=== PATIENT | female | born 2005 | race Caucasian/White ===

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

== ENCOUNTER 2024-06-28 08:12 | Observation (INO) | payer OTHER ==
[~2024-06-28] VITALS: Ht 160 cm; Wt 72.5 kg
[~2024-06-28 08:12] MED LIST changes: +ABILIFY10 MG PO; +AMOXICILLIN500 MG PO; +ARIPIPRAZOLE10 MG PO; +CARBAMAZEPINE200 M2 PO; +CARBATROL200 MG PO; +CLONIDINE HCL0.1 MG PO; +DOXYCYCLINE HY100 M3 PO; +ONDANSETRON ODT4 MG PO; +QELBREE200 MG PO; +TRAZODONE HCL100 MG PO
[2024-06-28] MEDS ORDERED: IMIPRAMINE HCL50 MG PO (08:41)
[2024-06-28] MEDS ORDERED: BUSPIRONE HCL10 MG PO (08:41)
[2024-06-28] MEDS ORDERED: CARBAMAZEPINE200 M1 PO (08:41)
[2024-06-28] MEDS ORDERED: LURASIDONE HCL40 MG PO (08:41)
[2024-06-28] MEDS ORDERED: PHENAZOPYRIDINE HCL 95 MG TAB PO ONE (08:45)
[2024-06-28 08:57] LABS: BILIRUBIN, URINE POSITIVE (negative); BLOOD/HGB, URINE LARGE (Negative); KETONE, URINE SMALL (Negative); LEUK ESTERASE, URINE NEGATIVE (negative); NITRITE, URINE NEGATIVE (negative)
[2024-06-28 09:04] LABS: BACTERIA, URINE RARE /hpf (negative); CASTS, URINE NONE SEEN \\lpf; COLLECTION TYPE, URINE CLEAN CATCH; CRYSTALS, URINE NONE SEEN (0-1+); EPITHELIAL CELLS, URINE SQUAMOUS 3+ /lpf (0-1+); RED BLOOD CELLS, URINE >50 /hpf (0-5); REFLEX CULTURE, URINE No (No); WHITE BLOOD CELLS, URINE 0-1 /HPF (0-5)
[2024-06-28] MEDS ORDERED: SODIUM CHLORIDE 0.9% 1,000 ML IV PRN (09:15)
[2024-06-28] MEDS ORDERED: KETOROLAC TROMETHAMINE 30 MG/ML VIAL IV ONE (09:15)
[2024-06-28 09:27] LABS: BASOPHILS 0.4 % (0-2); HEMATOCRIT 44.3 % (35.0-50.0); HEMOGLOBIN 15.3 g/dL (12.0-18.0); LYMPHOCYTES 28.6 % (24-44); MCH 29.7 (27-36); MCHC 34.6 g/dl (30-36); MCV 85.8 fl (81-99); MONOCYTES 6.3 % (0-12); NEUTROPHILS 64.7 % (39-80); PLATELET COUNT 214 K/uL (140-440); RBC 5.16 M/ul (4.3-5.7); RDW 12.2 (10.5-15.0)
[2024-06-28 09:42] LABS: ALBUMIN 4.2 g/dL (3.4-5.0); ALBUMIN/GLOBULIN RATIO 1.27 (1.1-2.4); ANION GAP 15.5 (7-21); BILIRUBIN, TOTAL 0.6 ng/dL (0.2-1.0); BUN/CREATININE RATIO 7.5 (6.0-28.6); CALCIUM 9.3 mg/dL (8.5-10.1); CREATININE, SERUM 0.8 mg/dL (0.55-1.02); POTASSIUM 3.5 mmol/L (3.5-5.1); PROTEIN, TOTAL 7.5 g/dL (6.4-8.2)
[2024-06-28] MEDS ORDERED: ZAFEMY 150-351 EACH TOP (11:30)
[2024-06-28] MEDS ORDERED: LACTATED RINGER'S 1,000 ML IV SCH ×3 (11:45→20:00)
[2024-06-28] MEDS ORDERED: CEFTRIAXONE/SODIUM CHLORIDE 1 GM/100 ML PIGGYBACK IV ONE (11:45)
[2024-06-28] MEDS ORDERED: HYDROmorphone HCL 1 MG/ML SYR IV PRN (15:15)
[2024-06-28] MEDS ORDERED: D5W 1/2 NS + 20 KCL 1,000 ML IV SCH (15:15)
[2024-06-28] MEDS ORDERED: ondansetron HCL 4 MG/2 ML VIAL IV PRN ×2 (15:15→20:00)
[2024-06-28 16:37] VITALS: BP 123/70
--- NOTE | 2024-06-28 17:00 | NUR ---
Patient arrived to the medical floor. Patient is alert and oriented x4, notably anxious. Patient's vitals are stable. IV site patent, fluids infusing per order. Patient reports pain level 5/10, she is declining pain medications at this time. Patient oriented to room and call light.
--- NOTE | 2024-06-28 17:42 | NUR ---
Clarified iv fluid order with Dr. Rae via phone. New order to change fluids to LR @ 85ml/hr continuous. Also to start patient's home dose/schedule for buspirone. Orders placed at this time.
[2024-06-28] MEDS ORDERED: busPIRone HCL 5 MG TAB PO PRN ×2 (17:45→18:30)
[2024-06-28 18:09] VITALS: BP 124/84
--- NOTE | 2024-06-28 18:12 | NUR ---
PT RESTING IN BED. VITALS COMPLETE. VOIDED 200 ML OF ORANGE URINE, APPEARS TO HAVE SOME BLOOD IN IT WELL. DENIES ANY NEEDS, CALL LIGHT IN REACH
--- NOTE | 2024-06-28 18:13 | NUR ---
PT ASKED IF 14 Y.O BROTHER COULD STAY WITH HER. SPOKE W BROADCAST OPERATIONS DIRECTOR RN, HE OK'D IF SOLVENT MIXER OK'D. SOLVENT MIXER OK'D , PT NOTIFED.
--- NOTE | 2024-06-28 19:33 | NUR ---
REPORT RECEIVED FROM DAY SHIFT RN. PT LYING IN BED ALERT AND ORIENTED. SANDWICH BOX PROVIDED PER REQUEST. NO FURTHER NEEDS. WHITE BOARD UPDATED. CALL LIGHT IN REACH.
[2024-06-28] MEDS ORDERED: MORPHINE SULFATE 10 MG/ML VIAL IV PRN (20:00)
[2024-06-28] MEDS ORDERED: KETOROLAC TROMETHAMINE 30 MG/ML VIAL IV PRN (20:00)
--- NOTE | 2024-06-28 20:05 | CONS ---
[facility] [address] [place], [place] [address] Signed DATE OF CONSULTATION: 06/28/2024 REQUESTING PHYSICIAN: Dr. Pérez [facility]. ISSUE: Right flank pain (chronic), hematuria, CT finding with mildly dilated appendix. HISTORY OF PRESENT ILLNESS: This 18-year-old white woman tells me she has had right flank pain and some right subcostal pain for months. Her primary provider, Dr. Fulton has organized her to see a urologist as she has had chronic recurrent urinary tract infections. She has had no change whatsoever in her symptoms even recently though did present to the emergency room today with complaints of the pain. There is nothing new, specifically no nausea or vomiting. No right lower abdominal pain or lower abdominal pain, right or left side particularly. Urinalysis was obtained which was quite markedly abnormal with a large amount of blood, pH of 6.0, red cells greater than 50 and white cells 0 to 1. Her CBC was notable for white count is normal at 6.5 with hematocrit of 44.3, and platelets 214,000. The patient has been documented as having chronic recurrent urinary tract infections and has been treated with antibiotics in the past. A Urology referral has been put in place and she is not to see the urologist until September for which a cystoscopy is planned. The patient has had no nausea or vomiting. She is able to maintain hydration and has no right lower abdominal pain whatsoever. A beta HCG has been obtained which was negative. A Chem profile obtained is normal as well including liver enzymes. Consultation was obtained on the finding of the CT scan, which showed a borderline slightly enlarged appearance of the appendix measuring 9 mm at its base, but a foci of gas within the tip of the appendix. There was no regional lymphadenopathy or inflammatory change. The lungs appeared normal. Liver, gallbladder and biliary tree considered normal as well. A 5 mm calculus is seen in the mid pole of the left kidney. There was no evidence of hydroureter. The distal ureters and bladder appeared normal. There is no pelvic mass. PAST MEDICAL HISTORY: Notable primarily for mental health disease, which includes bipolar disease and several other diagnoses including PTSD, all of which she seems to know well. She is under treatment for these maladies. CURRENT MEDICATIONS: Include 400 mg p.o. daily, buspirone 5-10 mg p.o. t.i.d., imipramine 50 mg Electronically Signed By: BENJI ZUNIGA MD 06/28/242004 PATIENT NAME: DOMI GEE CONSULTATION DATE OF : 04 REPORT #: [id number] PHYSICIAN: BENJI ZUNIGA MD PCP: RAMIN FULTON MD REPORT IS CONFIDENTIAL AND NOT TO BE RELEASED WITHOUT AUTHORIZATION [facility] [address] [place] [id number] Signed p.o. at bedtime, carbamazepine 200 mg p.o. at bedtime, lurasidone 40 mg p.o. at bedtime and a control patch (Zafemy). She has discontinued Abilify, trazodone and continues to take carbamazepine. SOCIAL HISTORY: She lives with her grandmother. She has with her accompanying a well-behaved black Labrador dog. REVIEW OF SYSTEMS: She denies any nausea or vomiting. She has had no dysuria. The pain is primarily in the right posterior flank area and to a lesser extent right subcostal area. She has no pelvic pain. No right lower quadrant pain. PHYSICAL EXAMINATION: GENERAL: This is a very pleasant white woman who is socially engaged generally speaking. She shows no evidence of toxicity and no distress particularly. CHEST: Clear. HEART: Regular without murmur. ABDOMEN: Soft and nondistended. Rovsing sign is negative. She has no tenderness at McBurney's point and at this point, and only mild tenderness in the right upper quadrant without peritonitis. There is no mass. EXTREMITIES: Show no clubbing, cyanosis, or edema. LABORATORY DATA: White count of 6.5, hematocrit 44.3, platelets 214,000. Chem profile is normal as noted. Urine test negative. Urinalysis showing a specific gravity 1.030, urine protein 30, ketones small, urine blood is large, urine nitrite negative, urine bilirubin positive, urobilinogen 1.0, urine leukocyte esterase negative, urine RBCs greater than 50, white cells 0 to 1 epithelial cells, squamous cells 3+, urine bacteria rare. I have reviewed the CT scan myself. Additionally, I have reviewed the report. The gallbladder appears to be nondistended and without sign of stone. The liver is normal. On the coronal view, similar findings are noted. Inspection of the right colon shows no sign of pericolonic inflammation or edema. Discernment of the appendix is somewhat challenging, but the area likely the appendix appears uninflamed. I did not appreciate hydroureter in the more proximal genitourinary tract, though it is admitted this is not a uro-abdomen CT. ASSESSMENT: It is quite unlikely the patient has acute appendicitis. She has had multiple urinary tract infections treated with antibiotics and at present has significant hematuria, which would be most consistent with nephrolithiasis. She does tell me that she has family history of polycystic kidney disease. This included her mother. I see no Electronically Signed By: BENJI ZUNIGA MD 06/28/242004 PATIENT NAME: DOMI GEE CONSULTATION DATE OF : 04 REPORT #: [id number] PHYSICIAN: BENJI ZUNIGA MD PCP: RAMIN FULTON MD REPORT IS CONFIDENTIAL AND NOT TO BE RELEASED WITHOUT AUTHORIZATION [facility] [address] [place], [place] [address] Signed evidence of renal abnormality other than a radiodense stone in the pelvis of the left kidney and no radiopaque stone in the ureter on the left or right side. There is no hydroureter. Still, with the hematuria that she has, a cystoscopy would be appropriate as etiologies other than nephrolithiasis could be part of her problem. I have discussed with Dr. Pérez that given her recurrent urinary tract infections and planned urologic evaluation, consideration might be made for urinary tract antibiotic treatment but she does not have mariola urinary tract infection at this time. Additionally, she has a negative beta-HCG and her pelvic organs to my inspection look reasonably normal. The possibility of biliary disease accounting for her flank and right subcostal pain is a consideration. The CT does not show stones, though the CT scan is not particularly reliable for that. The patient is encouraged to follow up with Dr. Fulton in the next 48 hours or to return to the ER if symptoms are worsening in any way. I did suggest to Dr Pérez that a gallbladder ultrasound be undertaken to assess for gallstones, which may account for her ruq pain for these many months, independent of her hematuria and known left sided nephrolithiasis. Benji Zuniga MD /MODL /[id number] cc: Dr. Kirstin Pérez Copies: ~ Electronically Signed By: BENJI ZUNIGA MD 06/28/242004 PATIENT NAME: DOMI GEE DILLAN CONSULTATION DATE OF : 04 REPORT #: [id number] PHYSICIAN: BENJI ZUNIGA MD PCP: RAMIN FULTON MD REPORT IS CONFIDENTIAL AND NOT TO BE RELEASED WITHOUT AUTHORIZATION
[2024-06-28 20:47] VITALS: BP 132/83
[2024-06-28 20:49] VITALS: BP 132/83
--- NOTE | 2024-06-28 20:59 | NUR ---
EVENING ASSESSMENT COMPLETE. PT REPORTS TOLERABLE LOW BACK PAIN. DENIES PRN FOR PAIN WHEN OFFERED. DENIES NAUSEA. PT REPORTS DISCOMFORT IN LEFT AC IV. IV FLUSHED WITH NS. BRISK BLOOD RETURN NOTED. DRESSING CDI. PT STATES "I DO EVERYTHING WITH MY LEFT HAND." EDUCATION PROVIDED ON LIMITING BENDING ARM TO PREVENT DISCOMFORT. SURGICAL CONSENT SIGNED. PT DENIES QUESTIONS OR CONCERNS. BROTHER AT BEDSIDE. CALL LIGHT IN REACH.
[2024-06-28] MEDS ORDERED: IMIPRAMINE HCL 25 MG TAB PO SCH (21:00)
[2024-06-28] MEDS ORDERED: carBAMazepine 200 MG TAB PO SCH (21:00)
[2024-06-28] MEDS ORDERED: busPIRone HCL 5 MG TAB PO SCH ×3 (21:00)
[2024-06-28] MEDS ORDERED: FAMOTIDINE 20 MG/ 2 ML VIAL IV SCH ×2 (21:00)
[2024-06-28] MEDS ORDERED: CEFAZOLIN SODIUM 2 GM/20 ML SYR IV SCH (22:00)
[2024-06-28] MEDS ORDERED: CEFAZOLIN SODIUM 1 GM/10 ML SYR IV SCH (22:00)
--- NOTE | 2024-06-28 22:08 | NUR ---
SCHEDULED MEDS ADMIN PER EMAR. PT REPORTS LOW BACK PAIN 04/05. PRN FOR PAIN ADMIN PER EMAR. PT HAD 100 ML CLEAR EMESIS. PRN FOR N/V ADMIN. GALL BLADDER BOOKLET PROVIDED. LINENS PROVIDED FOR YOUNGER BROTHER WHO IS STAYING THE NIGHT. PT DENIES QUESTIONS OR CONCERNS. CALL LIGHT IN REACH.
[2024-06-29] VITALS (11 sets, daily range): BP systolic 99–122; BP diastolic 52–66
--- NOTE | 2024-06-29 00:12 | NUR ---
PT RESTING WITH EYES CLOSED. RESPIRATIONS EVEN. PT NPO AT THIS TIME. LIQUIDS REMOVED FROM BEDSIDE TABLE.
--- NOTE | 2024-06-29 02:10 | NUR ---
PT RESTING WITH EYES CLOSED. AWAKENS EASILY. VS AND I&O OBTAINED. PT DENIES PAIN OR NAUSEA. PT REMAINS NPO, VERBALIZES UNDERSTANDING. NO NEEDS AT THIS TIME. CALL LIGHT IN REACH.
--- NOTE | 2024-06-29 04:12 | NUR ---
PT RESTING IN BED WITH EYES CLOSED. RESPIRATIONS EVEN. CALL LIGHT IN REACH.
[2024-06-29 05:28] LABS: HEMOGLOBIN 13.5 g/dL (12.0-18.0); MCH 29.6 (27-36); MCHC 34.7 g/dl (30-36); MCV 85.2 fl (81-99); PLATELET COUNT 193 K/uL (140-440); RBC 4.57 M/ul (4.3-5.7); RDW 12.2 (10.5-15.0)
[2024-06-29 05:36] LABS: ALBUMIN 3.5 g/dL (3.4-5.0); ALBUMIN/GLOBULIN RATIO 1.25 (1.1-2.4); ANION GAP 12.8 (7-21); BILIRUBIN, TOTAL 0.6 ng/dL (0.2-1.0); BUN/CREATININE RATIO 8.1 (6.0-28.6); CALCIUM 8.5 mg/dL (8.5-10.1); CREATININE, SERUM 0.74 mg/dL (0.55-1.02); MAGNESIUM 1.7 mg/dL (1.8-2.4); POTASSIUM 3.8 mmol/L (3.5-5.1); PROTEIN, TOTAL 6.3 g/dL (6.4-8.2)
[2024-06-29 05:39] LABS: BANDS, MANUAL DIFF 2; LYMPHOCYTES, MANUAL DIFF 53; MONOCYTES, MANUAL DIFF 2; NEUTROPHILS, MANUAL DIFF 43
--- NOTE | 2024-06-29 06:06 | NUR ---
VS AND I&O OBTAINED. SCANT AMOUNT BLOOD NOTED IN URINE THIS AM. PT DENIES PAIN OR NAUSEA. PT REMAINS NPO. ORAL CARE SUPPLIES PROVIDED. BROTHER REMAINS AT BEDSIDE. NO FURTHER NEEDS. CALL LIGHT IN REACH.
--- NOTE | 2024-06-29 07:33 | NUR ---
Patient awake, alert and oriented x4. Patient reports tolerable pain at this time. IV site patent. Warm blanket provided at this time.
--- NOTE | 2024-06-29 07:40 | NUR ---
Board has been updated and call light has been placed within reach
--- NOTE | 2024-06-29 08:24 | NUR ---
UR CLINICAL REVIEW: [facility] FOR CHOLECYSTECTOMY ODS EOCCO OBS 06/28/24 WILL UPDATE REG WILL SEND CLINICAL FOR AUTH REVIEW DISCHARGE HOME FOLLOWING PROCEDURE 06/30/24
[2024-06-29] MEDS ORDERED: ONDANSETRON HCL8 MG PO (09:00)
[2024-06-29] MEDS ORDERED: PATIENT'S OWN MEDICATION(S) ORDER PO SCH (09:00)
--- NOTE | 2024-06-29 09:01 | NUR ---
MED REC COMPLETE
--- NOTE | 2024-06-29 09:02 | NUR ---
Toradol 30mg IV admit at this time for reports of bilat flank pain/headache. Patient remains NPO this morning.
--- NOTE | 2024-06-29 09:35 | NUR ---
Spoke with Natalia. She states she currently lives with her grandparents. Her mom is the state paid cg for her grandmother, she will be in the home to assist Natalia with her needs. Pt does not use any DME. She states she works with [employer] through [employer] and he cw is Meghan. Pt plans on returning to her grandparents home on discharge. She denies any needs. Pt states she may dc tonight or tomorrow depending on Dr. Rae. She denies financial issues.
[2024-06-29] MEDS ORDERED: SUGAMMADEX SODIUM 200 MG/2 ML ML ONE (10:09)
[2024-06-29] MEDS ORDERED: SUCCINYLCHOLINE IN 0.9% NACL 200 MG/10 ML SYRINGE ONE (10:09)
[2024-06-29] MEDS ORDERED: LIDOCAINE HCL 4% 5 ML AMP ONE (10:09)
[2024-06-29] MEDS ORDERED: DEXAMETHASONE SOD PHOS 4 MG/ML VIAL ONE (10:09)
[2024-06-29] MEDS ORDERED: FAMOTIDINE 20 MG/ 2 ML VIAL ONE (10:09)
[2024-06-29] MEDS ORDERED: ROCURONIUM BROMIDE 50 MG/5 ML SYR ONE (10:09)
[2024-06-29] MEDS ORDERED: fentaNYL citrate 100 MCG/2 ML VIAL ONE (10:09)
[2024-06-29] MEDS ORDERED: METOCLOPRAMIDE HCL 10 MG/2 ML SDV ONE (10:09)
[2024-06-29] MEDS ORDERED: MIDAZOLAM HCL 2 MG/2 ML VIAL ONE (10:09)
[2024-06-29] MEDS ORDERED: LACTATED RINGER'S 1,000 ML IV ONE (10:09)
[2024-06-29] MEDS ORDERED: ondansetron HCL 4 MG/2 ML VIAL ONE (10:09)
[2024-06-29] MEDS ORDERED: KETOROLAC TROMETHAMINE 30 MG/ML VIAL ONE (10:09)
[2024-06-29] MEDS ORDERED: propofoL 200 MG/20 ML VIAL ONE (10:09)
--- NOTE | 2024-06-29 10:22 | NUR ---
PT LEAVES MED-SURG VIA BED TO SURGICAL PROCEDURE ESCORTED BY ANGELI MILLS.
--- NOTE | 2024-06-29 10:22 | NUR ---
Updated valeria, pt's mother that patient is going to surgery for a lap choley at this time. Valeria reports she is aware of plan of care.
[2024-06-29] MEDS ORDERED: CEFAZOLIN SODIUM 2 GM/20 ML SYR ONE (10:39)
[2024-06-29] MEDS ORDERED: SODIUM CHLORIDE 0.9% 40 ML IV ONE (10:47)
[2024-06-29] MEDS ORDERED: iopamidoL 30 ML VIAL ONE (10:47)
[2024-06-29] MEDS ORDERED: dexmedeTOMIDine HCl 200 MCG/2 ML VIAL ONE (11:17)
[2024-06-29] MEDS ORDERED: fentaNYL citrate 50 MCG/ML SDV ONE (12:46)
--- NOTE | 2024-06-29 12:46 | NUR ---
06/29/24 1246 [address],[place] 1224 PT ARRIVED TO PACU ON 10L VIA MASK WITH ORAL AIRWAY IN PLACE. RESP EVEN AND UNLABORED, HEAD TURNED TO SIDE AND JAW THRUST NO LONGER NEEDED.
[2024-06-29] MEDS ORDERED: MORPHINE SULFATE 10 MG/ML VIAL IV PRN (13:00)
[2024-06-29] MEDS ORDERED: droPERidol 5 MG/2 ML VIAL IV PRN (13:00)
[2024-06-29] MEDS ORDERED: ondansetron HCL 4 MG/2 ML VIAL IV PRN (13:00)
[2024-06-29] MEDS ORDERED: fentaNYL citrate 50 MCG/ML SDV IV PRN (13:00)
[2024-06-29] MEDS ORDERED: LORazepam 2 MG/ML VIAL IV PRN (13:00)
[2024-06-29] MEDS ORDERED: PROCHLORPERAZINE EDISYLATE 10 MG/2 ML VIAL IV PRN (13:00)
[2024-06-29] MEDS ORDERED: MIDAZOLAM HCL 2 MG/2 ML VIAL IV PRN (13:00)
[2024-06-29] MEDS ORDERED: NALOXONE HCL 0.4 MG SYR IV PRN (13:00)
[2024-06-29] MEDS ORDERED: METOCLOPRAMIDE HCL 10 MG/2 ML SDV IV PRN (13:00)
[2024-06-29] MEDS ORDERED: IBLOOD GLUCOSE TEST STRIP 1 EA TEST VI PRN (13:00)
[2024-06-29] MEDS ORDERED: OXYCODONE HCL 5 MG TAB PO PRN (13:15)
[2024-06-29] MEDS ORDERED: IBUPROFEN 600 MG TAB PO PRN (13:15)
[2024-06-29] MEDS ORDERED: ACETAMINOPHEN 500 MG TAB PO PRN (13:15)
--- NOTE | 2024-06-29 13:33 | NUR ---
Patient arrived to the medical floor. Patient awake, alert and oriented x3, a bit anxious. Patient stood at bedside to void, tolerated well, back to bed. Vital signs stable, sp02 98% on room air, respirations even and non labored. Lap sites to abdomen x4, small amount of serosang drainage coming from surgical sites. IV fluids restarted per order. Bed alarm intact. Patient's brother at bedside. Patient reports her pain is tolerable.
--- NOTE | 2024-06-29 14:03 | NUR ---
PT EATS 4 CRACKERS AND SIPS WATER, TOLERATES THIS WELL, DENIES NAUSEA AT THIS TIME. REPORTS ABDOMINAL PAIN X4 QUADRANTS 05/05, OXYCODONE RECEIVED ORDERED, SEE EMAR. FAMILY AT BEDSIDE X1. DISCUSSED HOW TO BRACE ABDOMEN WITH PILLOW WHEN COUGHING.
--- NOTE | 2024-06-29 14:11 | NUR ---
LEFT SCLERA REDNESS NOTED. PT STATES REDNESS WAS PRESENT PRIOR TO SURGERY. PT REPORTS LEFT EYE PAIN, BURNING 5/10. PT STATES EYE DROPS REDUCE PAIN IN THE LEFT EYE, STATES THIS IS HOW SHE MANAGED IT AT HOME.
--- NOTE | 2024-06-29 15:34 | NUR ---
PT DENIES NAUSEA AT THIS TIME. REPORTS PAIN 6/10 IN MID-ABDOMEN, IMPROVED FROM "ALL OVER ABDOMEN." PT REQUESTS MORE TO EAT. CRACKERS PROVIDED PER PT REQUEST. MEAL ORDERED FROM DIETARY. PT SITS UP IN BED, CALM AND ALERT, SCDS TO BLE. ABD SOFT AND TENDER. LAP X SITES X5 NOTED. SCANT AMOUNT OF SANGUINEOUS DRAINAGE NOTED AT UMBILICUS AND EPIGASTRIC SITES. EACH COVERED WITH GAUZE PER REQUEST OF PT.
[2024-06-29] MEDS ORDERED: OXYCODONE HCL5 MG PO (16:43)
[2024-06-29] MEDS ORDERED: IBUPROFEN600 MG PO (16:43)
[2024-06-29] MEDS ORDERED: FAMOTIDINE20 MG/2 ML IV (16:44)
[2024-06-29] MEDS ORDERED: ACETAMINOPHEN500 MG PO (16:44)
--- NOTE | 2024-06-29 16:49 | OR ---
[facility] [address] [place], [place] [address] Signed DATE OF OPERATION: 06/29/2024 SURGEON: Benji Zuniga MD PREOPERATIVE DIAGNOSES: 1. Acute calculous cholecystitis. 2. Dilated appendix on CT scan. POSTOPERATIVE DIAGNOSES: 1. Acute calculous cholecystitis. 2. Dilated appendix on CT scan. PROCEDURES: 1. Laparoscopic cholecystectomy with intraoperative cholangiogram. 2. Surgeon-directed fluoroscopy. 3. Laparoscopic appendectomy. ANESTHESIA: General endotracheal, Benji Cervantes CRNA and local 10 mL of 0.25% Marcaine with epinephrine. INDICATION: This 18-year-old white young woman is a patient of Dr. Shelley Fulton. She presented to the emergency room yesterday and was evaluated for complaints of right posterior thoracic and right subcostal pain, which has been going on for months. The patient incidentally was noted to have hematuria, red cells greater than 50 per high-power field, only 0 to 1 regarding bacteria. She has had treatment for chronic recurrent urinary tract infections she says. She is due to see urologist in September. A CT scan was performed under the direction of the emergency room physician, Dr. Pérez, which showed no sign of dilated ureter, but did show nephrolithiasis of the renal hilum on the left side and a dilated appendix. I was consulted on the basis of a dilated appendix and possibility of appendicitis with atypical symptoms. My examination showed her to have absolutely no tenderness in the right lower quadrant, but has mild tenderness in right upper quadrant and symptoms highly suggestive of biliary disease. On that basis, ultrasound was subsequently performed (the CT scan showed no sign of gallbladder abnormality otherwise) and the CT scan did confirm gallstones. She was admitted for acute calculous cholecystitis, mindful of an incidental finding of dilated appendix. The patient has numerous underlying mental health issues including PTSD, bipolar disease, and others. Electronically Signed By: BENJI ZUNIGA MD 06/29/24 5919 PATIENT NAME: DOMI GEE OPERATIVE REPORT DATE OF : 04 REPORT #: [id number] PHYSICIAN: BENJI ZUNIGA MD PCP: SHELLEY FULTON MD REPORT IS CONFIDENTIAL AND NOT TO BE RELEASED WITHOUT AUTHORIZATION [facility] [address] [place], [place] [address] Signed She is now admitted to undergo cholecystectomy preferred by a laparoscopic approach and evaluation and possible appendectomy. She understands the risk of bleeding, infection, bile duct injury need for open procedure and most importantly failure to cure her symptoms. Understanding that, she wished to proceed. FINDINGS: The gallbladder was chronically inflamed. It was not excessively large. The cystic duct was relatively small. Cholangiogram was normal. The liver was normal. The gallbladder had two 1 cm mulberry yellow gallstones. The mucosa showed chronic inflammation, but no sign of neoplasm. As regard to the appendix, it was not acutely inflamed. It was somewhat dilated and dull in appearance. The terminal ileum was normal. Appendectomy was performed without problem. DESCRIPTION OF PROCEDURE: The patient was brought to the operating room, given a general endotracheal anesthetic. Preoperative antibiotic Ancef was given. Sequential compression device stockings were used. The abdomen was prepared with chlorhexidine solution and draped sterilely. An infraumbilical incision was made and using an open Ren cannula technique pneumoperitoneum was achieved to a level of 14 mmHg of carbon dioxide gas. Intra-abdominal inspection showed no sign of ascites or carcinomatosis. The liver appeared normal. The gallbladder had a subacutely inflamed appearance with cold mucosa. Three additional trocars were placed in usual configuration in the subxiphoid, right midclavicular, and right anterior axillary line. The gallbladder was elevated cephalad and retracted laterally. Using blunt electrocautery dissection, the triangle of Calot was dissected free with meticulous care showing a relatively small duct and a dominant cystic arterial trunk with branching of cystic arterial branches. A clip was applied across the gallbladder cystic duct junction as well as on the cystic artery with full view of the critical view of safety. A transverse choledochotomy was made in the cystic duct, egress of clear bile was noted. Using an [employer] type cholangiocatheter system, intraoperative cholangiography was undertaken showing free flow of contrast in the biliary tree with prompt emptying into the duodenum. There was no sign of biliary anomaly, filling defect or other abnormality. The cystic duct was triply clipped and divided. The gallbladder was dissected free in a retrograde fashion after dividing the cystic artery. The gallbladder was placed in an endobag and extracted through the infraumbilical port site, opened on the back table, found to have two mulberry 1 cm gallstones. Mucosa with chronic inflammation and subacute inflammation but no sign of neoplasm. Irrigation was undertaken of the subhepatic space. There was no sign of bile leak, bleeding, or other Electronically Signed By: BENJI ZUNIGA MD 06/29/24 1649 PATIENT NAME: DOMI GEE OPERATIVE REPORT DATE OF : 04 REPORT #: [id number] PHYSICIAN: BENJI ZUNIGA MD PCP: SHELLEY FULTON MD REPORT IS CONFIDENTIAL AND NOT TO BE RELEASED WITHOUT AUTHORIZATION [address], [place] [address] Signed problems. Excess irrigation fluid was suctioned free. Laparoscope was replaced to the epigastric port and a right lower quadrant 5 mm port placed. With two hand manipulation, the cecum was evaluated as was the terminal ileum which appeared normal. The appendix was visualized and had a dull yost appearance, not acutely inflamed and not particularly turgid but dilated as suspected by the CT scan. Although not acutely inflamed, it was deemed advisable to resect the appendix on this occasion, particularly given her underlying psychologic issues, anxiety disorder, and so forth mindful that she may have need for further evaluation in the future given her nephrolithiasis. The appendix was elevated and a window was created between the appendix and the cecum. Through this window, Endo ANGELA stapling device was used to transect the appendix flushed with the cecum. open the mesoappendix which was secured with an Endo ANGELA stapling device as well. Good hemostasis was noted. The appendix was withdrawn into the infraumbilical trocar site and passed for permanent pathology. Irrigation was undertaken. There was no sign of bleeding in the lower abdomen or at the trocar sites. Trocar sites were well inspected and trocars removed under direct visualization showing no ongoing bleeding. Plans were then made for closure. The infraumbilical fascial incision was reapproximated with interrupted 2-0 Vicryl suture. 10 mL of 0.25% Marcaine with epinephrine was injected locally and the skin was closed with interrupted 3-0 Vicryl. Steri-Strips were applied. The patient was ultimately extubated and transferred to the recovery room in good condition having suffered no complication. Sponge, needle, and instrument counts reported as correct x3. Benji Kade, MD JM/MODL /[id number] cc: MD Dr. Beto Rodriguez Electronically Signed By: BENJI ZUNIGA MD 06/29/24 1649 PATIENT NAME: DOMI GEE OPERATIVE REPORT DATE OF : 04 REPORT #: [id number] PHYSICIAN: BENJI ZUNIGA MD PCP: SHELLEY FULTON MD REPORT IS CONFIDENTIAL AND NOT TO BE RELEASED WITHOUT AUTHORIZATION [facility] [address] [place] [id number] Signed Copies: ~ Electronically Signed By: BENJI ZUNIGA MD 06/29/24 1649 PATIENT NAME: DOMI GEE OPERATIVE REPORT DATE OF : 04 REPORT #: [id number] PHYSICIAN: BENJI ZUNIGA MD PCP: SHELLEY FULTON MD REPORT IS CONFIDENTIAL AND NOT TO BE RELEASED WITHOUT AUTHORIZATION
[2024-06-29] MEDS ORDERED: PEPCID20 MG PO (17:01)
[2024-06-29] MEDS ORDERED: FAMOTIDINE20 MG PO (20:55)
[2024-06-29] MEDS ORDERED: ONDANSETRON ODT8 MG PO (22:56)
--- NOTE | 2024-07-01 15:47 | PATH ---
[facility] [address], [place] [address] Signed SPECIMEN(S): A GALLBLADDER AND STONES SPECIMEN(S): B APPENDIX SPECIMEN SOURCE: A. GALLBLADDER AND STONES B. APPENDIX CLINICAL HISTORY: Acute calculus cholecystitis FINAL PATHOLOGIC DIAGNOSIS: A. Gallbladder and stones: - Chronic calculous cholecystitis. B. Appendix, appendectomy: - Benign vermiform appendix with focal mild acute appendicitis. JVR:noemi MICROSCOPIC EXAMINATION: Histologic sections of all submitted blocks are examined by light microscopy. These findings, together with the gross examination, support the pathologic diagnosis. GROSS DESCRIPTION: A. The specimen, labeled and designated "Worth, gallbladder and stones," is received in formalin and consists of Specimen: Disrupted, already opened gallbladder. Dimensions: 6.2 x 4.1 x 1.8 cm. Serosa: Mildly congested and smooth. Cystic Duct: Stapled, 0.4 cm in diameter at the margin, unobstructed. Calculi: One, free-floating, orange-yellow, granular calculus in specimen container (1.1 x 1.0 x 0.9 cm). Mucosa: Fuller-green, velvety, and mildly trabeculated. Wall thickness: 0.2 cm. Lymph node: No pericystic lymph nodes are grossly identified. Additional: None. Qm Consultant sections are submitted in (A1). B. The specimen, labeled and designated "Worth, appendix," is received in formalin and consists of Specimen: Appendix with mesoappendix. Dimensions: 5.8 cm length by 0.7 cm diameter with attached mesoappendix measuring 1.7 cm. PATIENT NAME: DOMI GEE PATHOLOGY DATE OF : [birth year] REPORT #: [id number] PHYSICIAN: ARCHIE DENNY PCP: RAMIN RAMOS MD REPORT IS CONFIDENTIAL AND NOT TO BE RELEASED WITHOUT AUTHORIZATION [facility] [address], [place] [address] Signed Serosa: Fuller-pink, smooth, and mildly congested. Defect: Not grossly identified. Inking: Staple line is inked Blue. Mucosa: Fuller-yellow and soft. Fecalith: Diffusely present within lumen. Additional: None. Qm Consultant sections are submitted in (B1). AM (under the direct supervision of a pathologist) The Gross Description was prepared using a voice recognition system. The report was reviewed for accuracy; however, sound-alike word errors, addition and/or deletions may occur. If there is any question about this report, please contact Client Services. PERFORMING LABORATORY: Technical component was performed by [employer], [address] [place] [id number] (CLIA# [id number]). Professional interpretation was performed by [facility], [address] [place] [id number] (CLIA#: [id number]). Diagnostician: Dixon Neely MD Pathologist Electronically Signed 07/01/2024 Copies: ~ PATIENT NAME: DOMI GEE PATHOLOGY DATE OF : [birth year] REPORT #: [id number] PHYSICIAN: ARCHIE DENNY PCP: RAMIN RAMOS MD REPORT IS CONFIDENTIAL AND NOT TO BE RELEASED WITHOUT AUTHORIZATION
== END 2024-06-29 17:45 | disposition home or self-care (01) ==
LOC: ED 08:12 → MS 08:14 → ED 15:26 → MS 15:26
PROVIDERS: Emergency Medicine; ADMIT Surgery; ATTEND Surgery
PROC: 0FT44ZZ Resection of Gallbladder, Percutaneous Endoscopic Approach (ICD-10-PCS; principal; 2024-06-29 12:15)
PROC: 0DTJ4ZZ Resection of Appendix, Percutaneous Endoscopic Approach (ICD-10-PCS; 2024-06-29 12:15)
DX: K80.10 Calculus of gallbladder with chronic cholecystitis without obstruction (principal); K35.80 Unspecified acute appendicitis; Z79.899 Other long term (current) drug therapy
CPT/HCPCS: 00790; 36415; 74176; 74300; 76705; 80053; 81001; 83735; 84703; 85025; 96365; 96368; 96375; 96376; 99285-25; A9270; G0378; J0330; J0690; J0696; J1100; J1885; J2250; J2405; J2704; J2765; J3010; J3490; J7030; J7121; Q9967

== ENCOUNTER 2024-06-29 20:49 | Emergency (ER) | payer OTHER ==
[~2024-06-29] VITALS: Ht 160 cm; Wt 72.3 kg
[~2024-06-29 20:49] MED LIST changes: +ACETAMINOPHEN500 MG PO; +BUSPIRONE HCL10 MG PO; +CARBAMAZEPINE200 M1 PO; +FAMOTIDINE20 MG/2 ML IV; +IBUPROFEN600 MG PO; +IMIPRAMINE HCL50 MG PO; +LURASIDONE HCL40 MG PO; +ONDANSETRON HCL8 MG PO; +OXYCODONE HCL5 MG PO; +PEPCID20 MG PO; +ZAFEMY 150-351 EACH TOP
[2024-06-29] MEDS ORDERED: FAMOTIDINE20 MG PO (20:55)
[2024-06-29 22:39] LABS: BASOPHILS 0.2 % (0-2); EOSINOPHILS 0.1 % (0-6); HEMOGLOBIN 13.5 g/dL (12.0-18.0); LYMPHOCYTES 8.2 % (24-44); MCH 29.8 (27-36); MCHC 34.6 g/dl (30-36); MCV 86.1 fl (81-99); MONOCYTES 1.2 % (0-12); NEUTROPHILS 90.3 % (39-80); PLATELET COUNT 199 K/uL (140-440); RBC 4.53 M/ul (4.3-5.7)
[2024-06-29 22:54] LABS: ALBUMIN 3.6 g/dL (3.4-5.0); ALBUMIN/GLOBULIN RATIO 1.16 (1.1-2.4); ANION GAP 16.1 (7-21); BILIRUBIN, TOTAL 0.5 ng/dL (0.2-1.0); BUN/CREATININE RATIO 9.72 (6.0-28.6); CALCIUM 8.7 mg/dL (8.5-10.1); CREATININE, SERUM 0.72 mg/dL (0.55-1.02); POTASSIUM 4.1 mmol/L (3.5-5.1); PROTEIN, TOTAL 6.7 g/dL (6.4-8.2)
[2024-06-29] MEDS ORDERED: ONDANSETRON ODT8 MG PO (22:56)
[2024-06-29] MEDS ORDERED: ONDANSETRON 4 MG HOME.PACK SL ONE (23:00)
[2024-06-29 23:09] VITALS: BP 131/92
== END 2024-06-29 23:09 | disposition home or self-care (01) ==
LOC: ED 20:49
PROVIDERS: Family Medicine
DX: K91.0 Vomiting following gastrointestinal surgery (principal); Z90.49 Acquired absence of other specified parts of digestive tract; Z79.899 Other long term (current) drug therapy
CPT/HCPCS: 36415; 80053; 85025; 88304; 99284; A9270